=== PATIENT | male | born 2000 | race Hispanic/Latino ===

== ENCOUNTER 2022-06-03 17:31 | Emergency (ER) | payer OTHER ==
[~2022-06-03] VITALS: Ht 170.2 cm; Wt 73.9 kg
[2022-06-03] MEDS ORDERED: PROVENTIL HFA6.7 GM INH (19:06)
[2022-06-03] MEDS ORDERED: PREDNISONE20 MG PO (19:07)
== END 2022-06-03 19:11 | disposition home or self-care (01) ==
LOC: FSED 17:42
DX: R05.9 Cough, unspecified (principal); J20.9 Acute bronchitis, unspecified
CPT/HCPCS: 83518; 87400; 99283

== ENCOUNTER 2022-06-28 18:42 | Emergency (ER) | payer OTHER ==
[~2022-06-28] VITALS: Ht 170.2 cm; Wt 73.5 kg
[~2022-06-28 18:42] MED LIST: PREDNISONE20 MG PO; PROVENTIL HFA6.7 GM INH
[2022-06-28] MEDS ORDERED: MONTELUKAST SOD10 MG PO (19:25)
[2022-06-28] MEDS ORDERED: VENTOLIN HFA18 GM INH (19:25)
[2022-06-28 19:42] VITALS: BP 152/83
== END 2022-06-28 19:42 | disposition home or self-care (01) ==
LOC: FSED 19:36
DX: R05.9 Cough, unspecified (principal); J45.990 Exercise induced bronchospasm; L50.9 Urticaria, unspecified; F90.9 Attention-deficit hyperactivity disorder, unspecified type
CPT/HCPCS: 99282

== ENCOUNTER 2022-09-01 16:38 | Emergency (ER) | payer OTHER ==
[~2022-09-01] VITALS: Ht 167.6 cm; Wt 72.6 kg
[~2022-09-01 16:38] MED LIST changes: +MONTELUKAST SOD10 MG PO; +VENTOLIN HFA18 GM INH
[2022-09-01 17:35] VITALS: O2SAT 99
== END 2022-09-01 17:30 | disposition home or self-care (01) ==
LOC: FSED 16:44
DX: R10.30 Lower abdominal pain, unspecified (principal); R63.5 Abnormal weight gain
CPT/HCPCS: 80053; 81003; 85025; 99282